=== PATIENT | female | born 1960 | race African-American/Black ===

== ENCOUNTER 2021-10-26 05:29 | Emergency (ER) | payer MEDICAID ==
[~2021-10-26] VITALS: Ht 172.7 cm; Wt 75.0 kg
[~2021-10-26 05:29] MED LIST: AMLO2.5T45 PO; ATEN-42 PO; GLIM4TAB36 PO; LORA-249; LOSA25TA3 PO; METF-414 PO
[2021-10-26 05:55] VITALS: BP 167/89
== END 2021-10-26 05:56 | disposition left against medical advice (07) ==
LOC: ER 05:29
DX: R07.89 Other chest pain (principal); E11.9 Type 2 diabetes mellitus without complications; I10 Essential (primary) hypertension; G40.909 Epilepsy, unspecified, not intractable, without status epilepticus; Z79.84 Long term (current) use of oral hypoglycemic drugs; Z88.2 Allergy status to sulfonamides
CPT/HCPCS: 93005; 99283